=== PATIENT | male | born 1945 | race Caucasian/White ===

== ENCOUNTER 2019-05-23 16:04 | Emergency (ER) | payer MEDICARE, OTHER ==
[~2019-05-23] VITALS: Ht 185.4 cm; Wt 81.8 kg
--- NOTE | 2019-05-23 18:18 | NUR ---
Dr. Shankar is with the patient at this time.
[2019-05-23] MEDS ORDERED: LIDOcaine 1% 30ml preserv. free vial IJ ONE (18:20)
[2019-05-23 19:14] VITALS: BP 171/113
[2019-05-23] MEDS ORDERED: HYDR-3965 PO (20:03)
== END 2019-05-23 20:13 | disposition home or self-care (01) ==
LOC: ER 16:05
DX: S63.115A Dislocation of metacarpophalangeal joint of left thumb, initial encounter (principal); S00.81XA Abrasion of other part of head, initial encounter; G50.1 Atypical facial pain; I10 Essential (primary) hypertension; Z88.8 Allergy status to other drugs, medicaments and biological substances; Z79.899 Other long term (current) drug therapy; W06.XXXA Fall from bed, initial encounter; Y93.39 Activity, other involving climbing, rappelling and jumping off; Y92.89 Other specified places as the place of occurrence of the external cause; Y99.8 Other external cause status
CPT/HCPCS: 26700; 70450; 73130; 73140; 99284; J2001